=== PATIENT | female | born 1960 | race Caucasian/White ===

== ENCOUNTER 2018-10-05 16:30 | Emergency (ER) | payer OTHER ==
[2018-10-05 16:45] VITALS: PULSE 96; TEMP 98.2; BMI 29.2
--- NOTE | 2018-10-05 16:46 | PDOC ---
Rapid Medical Evaluation Chief Complaint: Pain, Acute Time Seen by Provider: 10/05/18 16:42 Medical Evaluation: Allergies Allergy/AdvReac Type Severity Reaction Status Date / Time NSAIDS (Non-Steroidal Allergy Verified 08/05/17 09:04 Anti-Inflamma 10/05/18 16:42 I have performed a brief in-person evaluation of this patient. The patient presents with a chief complaint of: Right flank pain - feels same as kidney stones Pertinent physical exam findings: pain to right side + CVAT I have ordered the following: UA/ Cx/ Renal Scan CT The patient will proceed to the ED for further evaluation. Discharge Disposition - Diagnosis Flank pain, acute - Referrals - Patient Instructions - Post Discharge Activity
[2018-10-05 19:03] LABS: URINE APPEARANCE CLEAR; URINE BILIRUBIN NEGATIVE (NEGATIVE); URINE COLOR YELLOW; URINE GLUCOSE (UA) NEGATIVE (NEGATIVE); URINE KETONE NEGATIVE (NEGATIVE); URINE LEUK ESTERASE NEGATIVE (NEGATIVE); URINE NITRITE NEGATIVE (NEGATIVE); URINE PROTEIN NEGATIVE (NEGATIVE); URINE UROBILINOGEN 0.2 mg/dL (0.2-1.0)
[2018-10-05] MEDS ORDERED: ACETAMINOPHEN 500 MG TABLET (FP) PO ONE (19:48)
--- NOTE | 2018-10-05 19:56 | PDOC ---
History of Present Illness - General Chief Complaint: Pain, Acute Stated Complaint: RIGHT FLANK PAIN Time Seen by Provider: 10/05/18 16:42 History Source: Patient Exam Limitations: No Limitations - History of Present Illness Initial Comments: 10/05/18 19:52 HISTORY OF PRESENT ILLNESS: 57-year-old woman with past medical history of kidney stones presents emergency department for evaluation of right flank pain since awakening this morning. Patient reports the pain is a dull ache which she feels is deep within her body. She reports the pain is similar to his her previous kidney stones which required lithotripsy. After lithotripsy her urologist told her she had multiple bilateral kidney stones and was she was to expect migration at some point. Patient is also complaining of pharyngitis symptoms which started approximately 9 days ago. Patient was seen in urgent care center and was found to have positive streptococcal pharyngitis. Patient started antibiotics 2 days ago. She reports symptoms of pharyngitis and improved since initiation of antibiotics. No recent travel or sick contacts. PAST MEDICAL HISTORY: see HPI SURGICAL HISTORY: Denies ALLERGIES: Nsaids REVIEW OF SYSTEMS General/Constitutional: Denies fever or chills. Denies weakness, weight change. HEENT: Denies change in vision. Denies ear pain or discharge. Denies sore throat. Cardiovascular: Denies chest pain or shortness of breath. Respiratory: Denies cough, wheezing, or hemoptysis. Gastrointestinal: Denies nausea, vomiting, diarrhea or constipation. Denies rectal bleeding. Genitourinary: Denies dysuria, frequency, or change in urination. Musculoskeletal: see HPI Skin and breasts: Denies rash or easy bruising. Neurologic: Denies headache, vertigo, loss of consciousness, or loss of sensation. Psychiatric: Denies depression or anxiety. Endocrine: Denies increased thirst. Denies abnormal weight change. Hematologic/Lymphatic: Denies anemia, easy bleeding, or history of blood clots. Allergic/Immunologic: Denies hives or skin allergy. Denies latex allergy. PHYSICAL EXAM General Appearance: Well-appearing, appropriately dressed. No apparent distress , no intoxication. HEENT: EOMI, PERRLA, normal ENT inspection, normal voice, TMs normal. Tonsils mildly erythematous with out exudates present. No conjunctival pallor. No photophobia, scleral icterus. Respiratory/Chest: Lungs CTAB. No shortness of breath, chest tenderness, respiratory distress, accessory muscle use. No crackles, rales, rhonchi, stridor , wheezing, dullness Cardiovascular: RRR. S1, S2. No JVD, murmur, bradycardia, tachycardia. Gastrointestinal/Abdominal: Normal bowel sounds. Abdomen soft, non-distended. No tenderness or rebound tenderness. No organomegaly, pulsatile mass, guarding, hernia, hepatomegaly, splenomegaly. Musculoskeletal/Extremities: Normal inspection. FROM of all extremities, normal capillary refill. Pelvis Stable. No CVA tenderness. No tenderness to extremities, pedal edema, swelling, erythema or deformity. 10/05/18 19:56 Past History - Past Medical History Allergies/Adverse Reactions: Allergies Allergy/AdvReac Type Severity Reaction Status Date / Time NSAIDS (Non-Steroidal Allergy Verified 10/05/18 16:42 Anti-Inflamma Home Medications: Ambulatory Orders Fexofenadine HCl [Maria Luisa] 180 mg PO DAILY 08/18/12 Penicillin V Potassium [Pen Vee K -] 1,000 mg PO DAILY 10/05/18 COPD: No Psychiatric Problems: Yes (ANXIETY) - Surgical History Abdominal Surgery: No - Immunization History Immunization Up to Date: Yes - Suicide/Smoking/Psychosocial Hx Smoking Status: No Smoking History: Never smoked Number of Cigarettes Smoked Daily: 0 Hx Alcohol Use: No Drug/Substance Use Hx: No Substance Use Type: Alcohol *Physical Exam - Vital Signs Last Vital Signs Temp Pulse Resp BP Pulse Ox 98.2 F 96 H 17 144/89 99 10/05/18 16:42 10/05/18 16:42 10/05/18 16:42 10/05/18 16:42 10/05/18 16:42 ED Treatment Course - LABORATORY CBC & Chemistry Diagram: 10/05/18 20:19 10/05/18 20:19 - ADDITIONAL ORDERS Additional order review: Laboratory Results 10/05/18 18:30 Urine Color Yellow Urine Appearance Clear Urine pH 6.0 Ur Specific [place] 1.020 Urine Protein Negative Urine Glucose (UA) Negative Urine Ketones Negative Urine Blood Negative Urine Nitrite Negative Urine Bilirubin Negative Urine Urobilinogen 0.2 Ur Leukocyte Esterase Negative Medical Decision Making - Medical Decision Making 10/05/18 19:55 A/P: 57-year-old woman with right-sided flank pain today No CVA tenderness noted Abdominal exam is within normal limits Differential diagnosis includes but is not limited to- pyelonephritis, renal calculi, poststreptococcal nephritis, musculoskeletal injury Basic labs Urinalysis, urine culture Spiral CT Tylenol 1 g orally now Reassess 10/05/18 21:32 CT scan is read by Dr. Pickering: Regards to the urinary tract no definite interval changes identified in comparison to a 2014 CT study. Several small nonobstructing bilateral renal calculi are noted. Bilateral renal peripelvic cysts are seen. Right hepatic lobe lesion is seen which appears mildly increased in size. The CT appearance on the previous exam is most consistent with a hemangioma. Additional small stable hepatica measurements are also noted. CBC is unremarkable BMP is unremarkable. Urinalysis is unremarkable Patient reports relief of pain after receiving Tylenol. I will discharge the patient home to follow-up with her primary doctor I discussed the physical exam findings, ancillary test results and final diagnoses with the patient. I answered all of the patient's questions. The patient was satisfied with the care received and felt comfortable with the discharge plan and treatment plan. The patient will call their primary care physician within 24 hours to arrange follow-up and will return to the Emergency Department with any new, persistent or worsening symptoms. *DC/Admit/Observation/Transfer Diagnosis at time of Disposition: Flank pain, acute - Discharge Dispostion Disposition: HOME Condition at time of disposition: Stable Decision to Admit order: No - Referrals Referrals: ON STAFF,NOT [Primary Care Provider] - - Patient Instructions Additional Instructions: Continue penicillin as previously prescribed. Take Tylenol as directed by manufacturers instructions as needed for pain. Apply warm moist heat to lower back to help relax muscles encase this is musculoskeletal pain. You noted to have multiple kidney stones, renal cysts and liver hemangiomas on your CAT scan. Please follow-up with your regular doctor for continued evaluation. Return to the emergency department for any new or worsening symptoms. Thank you very much for choosing us to provide your emergent health care needs. - Post Discharge Activity Forms/Work/School Notes: Back to Work
[2018-10-05] MEDS ORDERED: ACETAMINOPHEN 325 MG TABLET (FP) ONE (20:11)
[2018-10-05 20:40] LABS: BASO % 0.6 % (0-2.0); EOS % 2.2 % (0-4.5); HEMATOCRIT 42.7 % (32.4-45.2); HEMOGLOBIN 13.8 GM/dL (10.7-15.3); MCH 29.2 pg (25.7-33.7); MCHC 32.4 g/dl (32.0-36.0); MEAN CELL VOLUME 90.1 fl (80-96); MEAN PLT VOLUME 7.9 fl (7.5-11.1); MONO % 6.7 % (3.8-10.2); NEUT % 68.5 % (42.8-82.8); PLATELET COUNT 330 K/MM3 (134-434); RBC 4.74 M/mm3 (3.60-5.2); RDW 13.5 % (11.6-15.6); WHITE BLOOD COUNT 8.2 K/mm3 (4.0-10.0)
[2018-10-05 21:05] LABS: CALCIUM 9.3 mg/dL (8.5-10.1); CREATININE 0.6 mg/dL (0.55-1.3); POTASSIUM 3.9 mmol/L (3.5-5.1)
[2018-10-05 21:40] VITALS: BP 138/79
== END 2018-10-05 21:39 | disposition home or self-care (01) ==
LOC: JER 16:30
DX: N20.0 Calculus of kidney (principal); Z87.442 Personal history of urinary calculi
CPT/HCPCS: 36415; 74176-TC; 80048; 81003; 85025; 87086; 99283-25

== ENCOUNTER 2019-12-29 12:53 | Emergency (ER) | payer OTHER ==
[2019-12-29 12:59] VITALS: TEMP 98; BMI 31.8
--- NOTE | 2019-12-29 13:34 | PDOC ---
History of Present Illness - General Chief Complaint: Lightheaded Stated Complaint: DIZZYNESS - History of Present Illness Initial Comments: 12/29/19 13:29 59yo F p/w lightheadedness, room-spinning, pressure in her R ear after vacationing in the [facility] 9days ago. She went out there 12/19 and went shopping, walked around the town, and went into the pool. She stayed at a hotel. She returned Monday, and she felt fullness in her ears. This was her only symptom through , when she felt a sore throat and lightheaded to the point of almost collapsing. She went home and used home-remedies. Sore throat resolved, but last night she felt the room spinning. She presents today w/ failure of resolution of ear fullness, R-sided head pressure, and dizziness. Denies bug bite, denies fevers, denies rashes, denies reduced ROM of neck, denies vomiting, denies h/o sinus infections and ear infections. Endorses h/o migraines but states that this feels different. 12/29/19 14:31 Reports a diseased tooth on the right side. 12/29/19 15:20 Past History - Medical History Allergies/Adverse Reactions: Allergies Allergy/AdvReac Type Severity Reaction Status Date / Time NSAIDS (Non-Steroidal Allergy Verified 12/29/19 12:59 Anti-Inflamma Home Medications: Ambulatory Orders Fexofenadine HCl [Maria Luisa] 180 mg PO DAILY 08/18/12 Penicillin V Potassium [Pen Vee K -] 1,000 mg PO DAILY 10/05/18 COPD: No Psychiatric Problems: Yes (ANXIETY) Other medical history: vertigo - Surgical History Abdominal Surgery: No - Reproductive History Is Patient Now?: No - Immunization History Immunization Up to Date: Yes - Psycho-Social/Smoking History Smoking Status: No Smoking History: Never smoked Number of Cigarettes Smoked Daily: 0 - Substance Abuse Hx (Audit-C & DAST Scrn) How often the patient has a drink containing alcohol: Never Score: In Men: 4 or > Positive; In Women: 3 or > Positive: 0 Screen Result (Pos requires Nsg. Audit-10AR): Negative Review of Systems - Review of Systems Able to Perform ROS?: Yes Is the patient limited Sinhala proficient: No Constitutional: No: Chills, Diaphoresis, Fever HEENTM: Yes: Ear Pain, Throat Pain, Mouth Pain, Dental Problems. No: Eye Pain, Blurred Vision, Tearing, Recent change in vision, Double Vision, Ear Discharge, Nose Congestion, Hearing Loss, Throat Swelling, Difficulty Swallowing, Mouth Swelling Respiratory: No: Cough, Shortness of Breath Cardiac (ROS): Yes: Lightheadedness. No: Chest Pain, Edema, Irregular Heart Rate, Palpitations, Syncope ABD/GI: Yes: Nausea, Abdominal cramping. No: Abdominal Distended, Vomiting : No: Symptoms Reported Musculoskeletal: No: Back Pain, Joint Pain, Joint Swelling, Muscle Pain, Muscle Weakness, Neck Pain, Joint Stiffness Integumentary: No: Change in Color, Lesions, Lumps, Rash, Sweating Neurological: Yes: Headache, Weakness, Dizziness. No: Seizure, Tingling Psychiatric: No: Sleep Pattern Change, Emotional Problems Endocrine: Yes: Increased Urine. No: Excessive Sweating, Flushing, Increased Thirst *Physical Exam - Vital Signs Last Vital Signs Temp Pulse Resp BP Pulse Ox 98 F 91 H 18 143/101 H 100 12/29/19 12:56 12/29/19 12:56 12/29/19 12:56 12/29/19 12:56 12/29/19 12:56 - Physical Exam General Appearance: Yes: Nourished, Appropriately Dressed. No: Apparent Distress HEENT: positive: EOMI, LILO, Normal Voice, Symmetrical, TMs Normal, Pharynx Normal, Pale Conjunctivae, Photophobia, Other (Rotting molar in back of mouth on R). negative: Scleral Icterus (R), Scleral Icterus (L), Muffled/Hoarse voice, Pharyngeal Erythema, Tonsillar Exudate, Tonsillar Erythema, Nasal Congestion, Rhinorrhea, Sinus Tenderness, Orbits, Hearing Decreased, TM Bulging, TM Dull Neck: positive: Supple. negative: Lymphadenopathy (R), Lymphadenopathy (L), Rigidity, Tender midline, Thyromegaly Respiratory/Chest: positive: Lungs Clear, Normal Breath Sounds. negative: Chest Tender, Respiratory Distress, Accessory Muscle Use Cardiovascular: positive: Regular Rhythm, Regular Rate, S1, S2 Gastrointestinal/Abdominal: positive: Normal Bowel Sounds, Protuberent Lymphatic: negative: Adenopathy Musculoskeletal: positive: Normal Inspection. negative: CVA Tenderness (L), Vertebral Tenderness Extremity: positive: Normal Capillary Refill. negative: Inflammation Integumentary: positive: Normal Color, Dry, Warm Neurologic: positive: recreation instructor II-XII NML intact, Fully Oriented, Alert, Normal Mood/Affect, Normal Response, Motor Strength 5/5, Finger to Nose (normal). negative: Sensory Deficit, Confused, Disoriented ED Treatment Course - LABORATORY CBC & Chemistry Diagram: 12/29/19 02:39 12/29/19 02:39 Medical Decision Making - Medical Decision Making 12/29/19 15:31 pt reports no systemic signs pt reports no vomiting pt reports no bug bites pt reports no rash pt reports diseased molar on affected side. pt dizziness responded well to meclizine+reglan Discharge - Discharge Information Problems reviewed: Yes Clinical Impression/Diagnosis: Tooth pain, Tooth infection Condition: Improved Disposition: HOME - Admission No - Follow up/Referral Referrals: Fred Varner MD [Primary Care Provider] - Paul Martinez [Staff Physician] - - Patient Discharge Instructions Patient Printed Discharge Instructions: DI for Tooth Decay Additional Instructions: You came to the ED with dizziness and pain on the right side of your head. We examined you and found a diseased tooth on the same side as your pain. We treated you with meclizine and reglan, and this seemed to resolve your symptoms. Please followup with a dentist, one is referred here in the instructions (Dr. Paul Martinez - ). We also gave you a referral for a dental clinic. Please call either or both within two days of your discharge from the ED. Please come back if any of your symptoms become more severe or you experience any other serious symptoms. - Post Discharge Activity
[2019-12-29] MEDS ORDERED: MECLIZINE HCL 25 MG TABLET (FP) PO ONE (14:28)
[2019-12-29] MEDS ORDERED: LACTATED RINGERS SOLUTION 1000 ML INFUS.BAG IV ONE (14:28)
[2019-12-29] MEDS ORDERED: METOCLOPRAMIDE HCL INJECTION 10 MG/2 ML VIAL IVPUSH ONE (14:30)
[2019-12-29] MEDS ORDERED: MECLIZINE HCL 25 MG TABLET (FP) ONE (14:35)
[2019-12-29] MEDS ORDERED: METOCLOPRAMIDE HCL INJECTION 10 MG/2 ML VIAL ONE (14:35)
[2019-12-29 15:02] LABS: HEMATOCRIT 45.6 % (32.4-45.2); HEMOGLOBIN 15.2 GM/dL (10.7-15.3); MCH 30.1 pg (25.7-33.7); MCHC 33.4 g/dl (32.0-36.0); MEAN CELL VOLUME 90.1 fl (80-96); MEAN PLT VOLUME 7.9 fl (7.5-11.1); PLATELET COUNT 327 K/MM3 (134-434); RBC 5.06 M/mm3 (3.60-5.2); RDW 14.1 % (11.6-15.6); WHITE BLOOD COUNT 7.5 K/mm3 (4.0-10.0)
[2019-12-29 15:32] LABS: ALK PHOS 81 U/L (45-117); ANION GAP 9 MMOL/L (8-16); BILIRUBIN,TOTAL 0.4 mg/dL (0.2-1); BLOOD UREA NITROGEN 13.2 mg/dL (7-18); CALCIUM 9.4 mg/dL (8.5-10.1); CHLORIDE 106 mmol/L (98-107); CO2 27 mmol/L (21-32); CREATININE 0.7 mg/dL (0.55-1.3); GLUCOSE,RANDOM 83 mg/dL (74-106); POTASSIUM 3.9 mmol/L (3.5-5.1); SGOT/AST 25 U/L (15-37); SGPT/ALT 31 U/L (13-61); SODIUM 141 mmol/L (136-145); TOT PROT 7.9 g/dl (6.4-8.2)
[2019-12-29 15:47] VITALS: BP 154/89; PULSE 60
--- NOTE | 2019-12-29 16:11 | PDOC ---
Documentation entered by Rayna Rainey SCRIBE, acting as scribe for Nisreen Gale MD. Nisreen Gale MD: This documentation has been prepared by the adiliaibeRedd Ana, SCRIBE, under my direction and personally reviewed by me in its entirety. I confirm that the documentation accurately reflects all work, treatment, procedures, and medical decision making performed by me. Attending Attestation - Resident Resident Name: Chilo Rodas - ED Attending Attestation I have performed the following: I have examined & evaluated the patient, The case was reviewed & discussed with the resident, I agree w/resident's findings & plan, Exceptions are as noted - HPI HPI: 12/29/19 13:38 Patient is a 59 year old female with a significant past medical history of kidney stones and migraines, who presents to the ED with lightheadedness and pressure in right ear x9 days. Patient went on vacation in the [facility] and has been experiencing these symptoms since along with a sore throat. Patient stated the sore throat has gone away but still feels like the "room is spinning". Also reports around the same time she noticed a filling from her R back tooth came out and she has been having some sensitivity of the tooth since that time. Patient denies: any other related symptoms. Allergies: NSAIDS - Physicial Exam PE: 12/29/19 15:17 General: non-toxic appearing HEENT: TMs wnl, R posterior lower tooth with large dental luz elena and ?cracked tooth Chest: CTAB, good air entry CVS: + s1 s2, RRR - Medical Decision Making 12/29/19 15:18 59 yo F with r ear fullness and R posterior pressure like headache, suspect symptoms 2/2 dental luz elena/exposed nerve from broken tooth. Also possible early viral syndrome. Given age and report of feeling lightheaded will check 1 set of CE's and basic labs. Plan: -labs -meclizine -reglan -reassess, if labs unremarkable will d/c home with return precautions, patient to f/u with her dentist This clinical encounter is taking place during a federal and state health care emergency attributable to the novel [place] Virus pandemic. The [place] of the Department of Health and Human Services has declared, pursuant to the Public Health Service Act 319F-3 (42 U.S.C. 247d-6d), that a covered persons activities related to medical countermeasures against COVID-19 will be immune from liability under Federal and State law. Discharge - Discharge Information Problems reviewed: Yes Clinical Impression/Diagnosis: Tooth pain, Tooth infection Condition: Improved Disposition: HOME - Additional Discharge Information Prescriptions: Meclizine HCl 25 mg PO TID PRN #90 tablet PRN Reason: Vertigo - Follow up/Referral Referrals: Paul Martinez [Staff Physician] - rFed Varner MD [Primary Care Provider] - - Patient Discharge Instructions Patient Printed Discharge Instructions: DI for Tooth Decay Additional Instructions: You came to the ED with dizziness and pain on the right side of your head. We examined you and found a diseased tooth on the same side as your pain. We treated you with meclizine and reglan, and this seemed to resolve your symptoms. Please followup with a dentist, one is referred here in the instructions (Dr. Paul Martinez - ). We also gave you a referral for a dental clinic. Please call either or both within two days of your discharge from the ED. Please come back if any of your symptoms become more severe or you experience any other serious symptoms. - Post Discharge Activity
--- NOTE | 2019-12-30 09:17 | EKG ---
Test Reason : Blood Pressure : / mmHG Vent. Rate : 067 BPM Atrial Rate : 067 BPM P-R Int : 128 ms QRS Dur : 084 ms QT Int : 396 ms P-R-T Axes : 054 042 041 degrees QTc Int : 418 ms NORMAL SINUS RHYTHM NORMAL ECG WHEN COMPARED WITH ECG OF 23-AUG-2014 10:30, NO SIGNIFICANT CHANGE WAS FOUND Confirmed by David Lopez ([id number]) on 12/30/2019 9:16:59 AM Referred By: Confirmed By:David Lopez
== END 2019-12-29 16:12 | disposition home or self-care (01) ==
LOC: JER 12:53
PROC: 3E033GC Introduction of Other Therapeutic Substance into Peripheral Vein, Percutaneous Approach (ICD-10-PCS; principal; 2019-12-29)
DX: K04.7 Periapical abscess without sinus (principal); K08.89 Other specified disorders of teeth and supporting structures
CPT/HCPCS: 36415; 80053; 84484; 85027; 86618; 93005; 93010; 99284-25

== ENCOUNTER 2023-05-14 18:40 | Inpatient (IN) | payer BC, OTHER ==
[2023-05-14 18:56] VITALS: BMI 31.0
[2023-05-14] MEDS ORDERED: morphine CARPU-JECT 2 MG/1 ML DISP.SYRIN IVPUSH ONE ×2 (19:28→22:09)
[2023-05-14] MEDS ORDERED: morphine CARPU-JECT 2 MG/1 ML DISP.SYRIN IM ONE (19:29)
[2023-05-14 21:05] LABS: BASO % 0.3 % (0-2.0); HEMATOCRIT 43.5 % (32.4-45.2); HEMOGLOBIN 14.3 GM/dL (10.7-15.3); LYMPH % 8.3 % (8-40); MCH 29.5 pg (25.7-33.7); MEAN CELL VOLUME 89.4 fl (80-96); MEAN PLT VOLUME 8.4 fl (7.5-11.1); MONO % 4.2 % (3.8-10.2); NEUT % 86.2 % (42.8-82.8); PLATELET COUNT 329 10^3/uL (134-434); RBC 4.86 M/mm3 (3.60-5.2); RDW 14.5 % (11.6-15.6); WHITE BLOOD COUNT 11.5 K/mm3 (4.0-10.0)
[2023-05-14 21:08] LABS: EPI CELLS 2 /uL (0-25.1); HYALINE CASTS 0 /uL (0-3.1); URINE APPEARANCE CLEAR; URINE BACTERIA 4 /uL (0-1359); URINE BILIRUBIN NEGATIVE (NEGATIVE); URINE COLOR YELLOW; URINE GLUCOSE (UA) NEGATIVE (NEGATIVE); URINE KETONE NEGATIVE (NEGATIVE); URINE LEUK ESTERASE NEGATIVE (NEGATIVE); URINE NITRITE NEGATIVE (NEGATIVE); URINE PROTEIN NEGATIVE (NEGATIVE); URINE RBC 136 /uL (0-23.9); URINE UROBILINOGEN 0.2 mg/dL (0.2-1.0); URINE WBC 2 /uL (0-25.8)
[2023-05-14 21:15] LABS: INR 0.92 (0.83-1.09); PROTHROMBIN TIME (PATIENT) 10.7 SEC (9.7-13.0)
[2023-05-14 21:18] LABS: ACTIVATED PTT 29.7 SECONDS (25.2-36.5)
[2023-05-14 21:23] LABS: CHLORIDE 106 mmol/L (98-107); POTASSIUM 4.4 mmol/L (3.5-5.1); SODIUM 139 mmol/L (136-145)
[2023-05-14 21:25] LABS: CALCIUM 9.6 mg/dL (8.5-10.1); GLUCOSE,RANDOM 110 mg/dL (74-106)
[2023-05-14 21:26] LABS: ALBUMIN 3.7 g/dl (3.4-5.0); ANION GAP 4 mmol/L (4-13); BLOOD UREA NITROGEN 12.9 mg/dL (7-18); CO2 30 mmol/L (21-32); MAGNESIUM 2.2 mg/dL (1.8-2.4)
[2023-05-14 21:28] LABS: SGPT/ALT 26 U/L (13-61)
[2023-05-14 21:29] LABS: SGOT/AST 26 U/L (15-37)
[2023-05-14 21:30] LABS: BILIRUBIN,TOTAL < 0.1 mg/dL (0.2-1); TOT PROT 7.7 g/dl (6.4-8.2)
[2023-05-14 21:31] LABS: ALK PHOS 84 U/L (45-117)
[2023-05-14] MEDS ORDERED: ONDANSETRON 4 MG/2 ML VIAL IVPUSH PRN (23:37)
[2023-05-14] MEDS ORDERED: ACETAMINOPHEN 1000 MG/100 ML BAG IVPB PRN (23:39)
[2023-05-15] MEDS ORDERED: ONDANSETRON 4 MG/2 ML VIAL ONE (00:08)
[2023-05-15] MEDS ORDERED: POLYETHYLENE GLYCOL (HEALTHYLAX) 3350 17 GM PACKET ONE (00:08)
[2023-05-15] MEDS: SODIUM CHLORIDE 1,000 ML IV SCH ×2 (00:27→13:03)
[2023-05-15] MEDS: POLYETHYLENE GLYCOL (HEALTHYLAX) 3350 17 GM PACKET PO SCH ×4 (00:27→21:38)
[2023-05-15] MEDS ORDERED: TAMSULOSIN HCL 0.4 MG CAP PO ONE (01:20)
[2023-05-15] MEDS ORDERED: SODIUM CHLORIDE 1,000 ML IV STA (01:21)
[2023-05-15] MEDS: ONDANSETRON 4 MG/2 ML VIAL IVPUSH SCH ×3 (01:58→13:02)
[2023-05-15] MEDS: HYDROmorphone HCL 2 MG TABLET PO PRN ×2 (02:01→09:19)
[2023-05-15] MEDS ORDERED: HEPARIN NA (PORCINE) 5,000 UNITS/ML 1ML VIAL SQ SCH (06:00)
[2023-05-15 08:18] LABS: POTASSIUM 4.5 mmol/L (3.5-5.1)
[2023-05-15 08:20] LABS: HEMATOCRIT 36.9 % (32.4-45.2); HEMOGLOBIN 12.2 GM/dL (10.7-15.3); MEAN CELL VOLUME 90.7 fl (80-96); MEAN PLT VOLUME 7.9 fl (7.5-11.1); PLATELET COUNT 300 10^3/uL (134-434); RBC 4.07 M/mm3 (3.60-5.2); RDW 14.6 % (11.6-15.6)
[2023-05-15 08:22] LABS: BLOOD UREA NITROGEN 10.6 mg/dL (7-18); CALCIUM 8.4 mg/dL (8.5-10.1)
[2023-05-15 08:25] LABS: CREATININE 0.7 mg/dL (0.55-1.3); PHOSPHOROUS 3.8 mg/dL (2.5-4.9)
[2023-05-15 08:27] LABS: BILIRUBIN,TOTAL 0.3 mg/dL (0.2-1); TOT PROT 6.1 g/dl (6.4-8.2)
[2023-05-15 08:30] LABS: ALBUMIN 2.9 g/dl (3.4-5.0)
[2023-05-15] MEDS: CEFTRIAXONE 500 MG in DEXTROSE 5%-WATER - 50 ML IVPB SCH (09:25)
[2023-05-15] MEDS: TAMSULOSIN HCL 0.4 MG CAP PO SCH (09:27)
[2023-05-15] MEDS: FAMOTIDINE 20 MG/50 ML IVPB 20 MG/50 ML MG IVPB SCH ×2 (14:41→21:38)
[2023-05-15] MEDS: ONDANSETRON 4 MG/2 ML VIAL IVPUSH PRN ×2 (17:32→23:07)
[2023-05-16] MEDS: SODIUM CHLORIDE 1,000 ML IV SCH (01:38)
[2023-05-16] MEDS: TAMSULOSIN HCL 0.4 MG CAP PO SCH (09:03)
[2023-05-16] MEDS: CEFTRIAXONE 500 MG in DEXTROSE 5%-WATER - 50 ML IVPB SCH (10:13)
[2023-05-16] MEDS: POLYETHYLENE GLYCOL (HEALTHYLAX) 3350 17 GM PACKET PO SCH ×2 (10:13→22:20)
[2023-05-16] MEDS: FAMOTIDINE 20 MG/50 ML IVPB 20 MG/50 ML MG IVPB SCH ×2 (10:13→22:20)
[2023-05-16] MEDS ORDERED: morphine SULFATE 4 MG/ML VIAL IVPUSH PRN ×2 (14:46→18:18)
[2023-05-16] MEDS ORDERED: MIDAZOLAM HCL 2 MG/2 ML SINGLE DOSE VIAL ONE (17:14)
[2023-05-16] MEDS ORDERED: ONDANSETRON 4 MG/2 ML VIAL ONE (17:14)
[2023-05-16] MEDS ORDERED: LIDOCAINE HCL/PF 2% SDV 5ML VIAL ONE (17:14)
[2023-05-16] MEDS ORDERED: DEXAMETHASONE SOD PHOSPHATE 4 MG/1 ML VIAL ONE (17:14)
[2023-05-16] MEDS ORDERED: PROPOFOL 20 ML ONE (17:14)
[2023-05-16] MEDS ORDERED: ceFAZolin SODIUM 1 GM VIAL IVPB ONE (17:39)
[2023-05-16] MEDS ORDERED: ceFAZolin SODIUM 1 GM VIAL ONE (17:39)
[2023-05-16] MEDS ORDERED: SEVOFLURANE 250 ML BTL ONE (17:52)
[2023-05-16] MEDS ORDERED: SODIUM CHLORIDE 1,000 ML IV SCH (18:18)
[2023-05-16] MEDS ORDERED: ONDANSETRON 4 MG/2 ML VIAL IVPUSH PRN ×2 (18:18→18:33)
[2023-05-16] MEDS ORDERED: ACETAMINOPHEN 1000 MG/100 ML BAG IVPB ONE (18:33)
[2023-05-16] MEDS ORDERED: LACTATED RINGERS SOLUTION 1,000 ML IV SCH (18:45)
[2023-05-16] MEDS ORDERED: ACETAMINOPHEN INJECTION 100 ML IVPB ONE (18:46)
[2023-05-17] MEDS ORDERED: SODIUM CHLORIDE 1,000 ML IV SCH (04:00)
[2023-05-17 07:23] VITALS: RESP 17
[2023-05-17] MEDS ORDERED: TAMSULOSIN HCL 0.4 MG CAP PO SCH (08:30)
[2023-05-17] MEDS ORDERED: CEFTRIAXONE 500 MG in DEXTROSE 5%-WATER - 50 ML IVPB SCH (10:00)
[2023-05-17] MEDS: POLYETHYLENE GLYCOL (HEALTHYLAX) 3350 17 GM PACKET PO SCH (10:30)
[2023-05-17] MEDS: FAMOTIDINE 20 MG/50 ML IVPB 20 MG/50 ML MG IVPB SCH (10:30)
[2023-05-17 13:30] VITALS: BP 130/80; PULSE 70; TEMP 98.6
== END 2023-05-17 13:55 | disposition home or self-care (01) | DRG 465 ==
LOC: JER 18:40 → JERBED 21:33 → J7W 05-15 01:03
PROVIDERS: ADMIT Internal Medicine
PROC: 0T778DZ Dilation of Left Ureter with Intraluminal Device, Via Natural or Artificial Opening Endoscopic (ICD-10-PCS; principal; 2023-05-16 15:00)
DX: N13.2 Hydronephrosis with renal and ureteral calculous obstruction (principal); I10 Essential (primary) hypertension; R11.2 Nausea with vomiting, unspecified; E78.5 Hyperlipidemia, unspecified
CPT/HCPCS: 36415; 74176-TC; 76000-TC-FY; 76705-TC; 80053; 81003; 83036; 83690; 83735; 84100; 85025; 85027; 85610; 85730; 86850; 86900; 86901; 87086; 93005; 93010; 94760; 99285-25; C2617

== ENCOUNTER 2024-02-14 06:49 | Emergency (ER) | payer BC ==
[2024-02-14 07:18] VITALS: BP 115/72; PULSE 73; RESP 115; TEMP 98.2; BMI 29.9
[2024-02-14 08:29] LABS: INR 1.05 (0.83-1.09); PROTHROMBIN TIME (PATIENT) 11.8 SEC (9.7-13.0)
[2024-02-14 08:30] LABS: POTASSIUM 3.7 mmol/L (3.5-5.1)
[2024-02-14 08:31] LABS: ACTIVATED PTT 33.2 SECONDS (25.2-36.5)
[2024-02-14 08:34] LABS: EPI CELLS 7 /uL (0-25.1); HYALINE CASTS 1 /uL (0-3.1); URINE APPEARANCE CLEAR; URINE BACTERIA 11 /uL (0-1359); URINE BILIRUBIN NEGATIVE (NEGATIVE); URINE COLOR YELLOW; URINE GLUCOSE (UA) NEGATIVE (NEGATIVE); URINE KETONE NEGATIVE (NEGATIVE); URINE LEUK ESTERASE NEGATIVE (NEGATIVE); URINE NITRITE NEGATIVE (NEGATIVE); URINE PROTEIN TRACE (NEGATIVE); URINE RBC 56 /uL (0-23.9); URINE UROBILINOGEN 0.2 mg/dL (0.2-1.0); URINE WBC 6 /uL (0-25.8)
[2024-02-14 08:36] LABS: BASO % 0.1 % (0-2.0); EOS % 0.3 % (0-4.5); HEMATOCRIT 39.5 % (32.4-45.2); LYMPH % 11.5 % (8-40); MCH 29.8 pg (25.7-33.7); MCHC 32.9 g/dl (32.0-36.0); MEAN CELL VOLUME 90.5 fl (80-96); MEAN PLT VOLUME 8.2 fl (7.5-11.1); MONO % 13.5 % (3.8-10.2); NEUT % 74.6 % (42.8-82.8); PLATELET COUNT 280 10^3/uL (134-434); RBC 4.36 M/mm3 (3.60-5.2); WHITE BLOOD COUNT 10.2 K/mm3 (4.0-10.0)
[2024-02-14] MEDS ORDERED: ONDANSETRON 4 MG/2 ML VIAL ONE (08:40)
[2024-02-14] MEDS: ONDANSETRON 4 MG/2 ML VIAL IVPUSH ONE (08:41)
[2024-02-14] MEDS: SODIUM CHLORIDE 1,000 ML IV STA (08:41)
[2024-02-14 08:44] LABS: BLOOD UREA NITROGEN 5.6 mg/dL (7-18); CALCIUM 8.6 mg/dL (8.5-10.1)
[2024-02-14 08:48] LABS: CREATININE 0.7 mg/dL (0.55-1.3)
[2024-02-14 08:49] LABS: BILIRUBIN,TOTAL 0.4 mg/dL (0.2-1); TOT PROT 6.8 g/dl (6.4-8.2)
[2024-02-14 12:46] LABS: HIV INTERPRETATION NEGATIVE (NEGATIVE)
== END 2024-02-14 12:04 | disposition home or self-care (01) ==
LOC: JER 06:49
PROC: 3E033GC Introduction of Other Therapeutic Substance into Peripheral Vein, Percutaneous Approach (ICD-10-PCS; principal; 2024-02-14)
PROC: 3E0337Z Introduction of Electrolytic and Water Balance Substance into Peripheral Vein, Percutaneous Approach (ICD-10-PCS; 2024-02-14)
DX: R19.7 Diarrhea, unspecified (principal); R53.1 Weakness; R11.0 Nausea; R42 Dizziness and giddiness; Z20.822 Contact with and (suspected) exposure to COVID-19
CPT/HCPCS: 0241U-QW; 36415; 80053; 81003; 83690; 84484; 85025; 85610; 85730; 86803; 86850; 86900; 86901; 87086; 87186; 87389; 93005; 93010; 99284-25

== ENCOUNTER 2024-12-11 13:14 | Emergency (ER) | payer BC ==
[2024-12-11 13:35] VITALS: PULSE 80; TEMP 98.5; BMI 31.2
[2024-12-11] MEDS ORDERED: MECLIZINE HCL 25 MG TABLET (FP) ONE (14:52)
[2024-12-11] MEDS: MECLIZINE HCL 25 MG TABLET (FP) PO ONE (14:58)
[2024-12-11 15:43] VITALS: BP 120/78; RESP 16
== END 2024-12-11 15:52 | disposition home or self-care (01) ==
LOC: JER 13:14
DX: R42 Dizziness and giddiness (principal); L29.9 Pruritus, unspecified
CPT/HCPCS: 99283-25